=== PATIENT | female | born 1975 | race Caucasian/White ===

== ENCOUNTER 2021-02-01 11:24 | Inpatient (IN) | payer MEDICAID ==
[~2021-02-01] VITALS: Ht 170.2 cm; Wt 136.1 kg
[2021-02-01] MEDS ORDERED: MORPHINE SULFATE 4 MG/ML CPJ (NOT FOR IM USE) IV STA (12:14)
[2021-02-01] MEDS ORDERED: ONDANSETRON HCL 4MG/2ML INJ IV STA (12:14)
[2021-02-01] MEDS ORDERED: SODIUM CHLORIDE 0.9% 1,000 ML IV ONE (12:15)
[2021-02-01] MEDS: ETOMIDATE 2MG/ML 10ML VIAL IV ONE ×2 (13:47→15:45)
[2021-02-01 13:55] LABS: BASOPHILS % 1.2 % (0.0-2.0); EOSINOPHILS % 2.2 % (0.0-5.0); HEMATOCRIT. 36.9 % (36.0-48.0); HEMOGLOBIN. 11.9 g/dL (12.0-16.0); LYMPHOCYTES % 21.8 % (20.0-50.0); MEAN CORPUSCULAR HEMOGLOBIN 23.1 pg (28.0-32.0); MEAN CORPUSCULAR VOLUME 71.6 fL (81.0-99.0); MEAN PLATELET VOLUME 9.2 fl (7.4-10.4); MONOCYTES % 7.4 % (2.0-8.0); NEUTROPHILS % 67.4 % (40.0-76.0); PLATELET 153 x1000/uL (130-400); RED BLOOD CELL COUNT 5.16 mill/uL (4.2-5.4); RED CELL DISTRIBUTION WIDTH 18.7 % (11.6-14.6)
[2021-02-01 14:02] LABS: CHLORIDE 111 mEq/L (98-107)
[2021-02-01 14:06] LABS: HCG SCREEN NEGATIVE
[2021-02-01 14:08] LABS: INR 1.1; PARTIAL THROMBOPLASTIN TIME 23.7 sec (23.4-31.0); PROTHROMBIN TIME 11.6 sec (9.6-11.0)
[2021-02-01] MEDS ORDERED: MORPHINE SULFATE 4 MG/ML CPJ (NOT FOR IM USE) IV ONE ×3 (14:15→20:00)
[2021-02-01] MEDS ORDERED: IOHEXOL-350 100 ML BOTTLE ONE (15:28)
[2021-02-01] MEDS ORDERED: DOCUSATE SODIUM 100MG CAPSULE PO PRN (20:15)
[2021-02-01] MEDS ORDERED: DIPHENHYDRAMINE 50MG/ML VIAL IV PRN (20:15)
[2021-02-01] MEDS ORDERED: LORAZEPAM 2MG/ML CPJ IV PRN (20:15)
[2021-02-01] MEDS ORDERED: ONDANSETRON HCL 4MG/2ML INJ IV PRN (20:15)
[2021-02-01] MEDS ORDERED: IPRATROPIUM/ALBUTEROL 0.5-3(2.5)MG/3ML NEB HHN PRN (20:15)
[2021-02-01] MEDS ORDERED: CLONIDINE 0.1MG TABLET PO PRN (20:15)
[2021-02-01] MEDS ORDERED: MAGNESIUM/ALUMINUM HYDROXIDE/SIMETHICONE 30ML UDC PO PRN (20:15)
[2021-02-01] MEDS ORDERED: HYDRALAZINE 20MG/ML VIAL IV PRN (20:15)
[2021-02-01] MEDS ORDERED: ENOXAPARIN 40MG/0.4ML SYR SUBCUT SCH (20:15)
[2021-02-01] MEDS ORDERED: GUAIFENESIN 200MG/10ML SUGAR FREE UDC PO PRN (20:15)
[2021-02-01 21:00] VITALS: BP 138/66
[2021-02-02] VITALS: BP 144/80
[2021-02-02] MEDS: ENOXAPARIN 30MG/0.3ML SYR SUBCUT SCH ×2 (00:05→09:00)
[2021-02-02] MEDS: MORPHINE SULFATE 2 MG/ML CPJ (NOT FOR IM USE) IV PRN ×6 (00:05→21:20)
[2021-02-02] MEDS: SODIUM CHLORIDE 0.9% INJ 3ML FLUSH IVF SCH ×3 (00:06→21:20)
[2021-02-02 04:00] VITALS: BP 110/75
[2021-02-02 06:27] LABS: CHLORIDE 108 mEq/L (98-107)
[2021-02-02 07:07] LABS: BASOPHILS % 1.2 % (0.0-2.0); EOSINOPHILS % 3.3 % (0.0-5.0); HEMATOCRIT. 31.9 % (36.0-48.0); HEMOGLOBIN. 10.2 g/dL (12.0-16.0); LYMPHOCYTES % 15.5 % (20.0-50.0); MEAN CORPUSCULAR HEMOGLOBIN 22.8 pg (28.0-32.0); MEAN PLATELET VOLUME 9.6 fl (7.4-10.4); MONOCYTES % 10.2 % (2.0-8.0); NEUTROPHILS % 69.8 % (40.0-76.0); PLATELET 123 x1000/uL (130-400); RED BLOOD CELL COUNT 4.49 mill/uL (4.2-5.4); RED CELL DISTRIBUTION WIDTH 18.9 % (11.6-14.6)
[2021-02-02 08:00] VITALS: BP 134/88
[2021-02-02 10:58] LABS: LDL CHOLESTEROL 68 mg/dL (5-100)
[2021-02-02 10:59] LABS: HDL CHOLESTEROL 47 mg/dL (40-59)
[2021-02-02 11:00] LABS: T4 FREE 1.25 ng/dL (0.76-1.46)
[2021-02-02 12:00] VITALS: BP 117/64
[2021-02-02 16:00] VITALS: BP 130/72
[2021-02-02 16:44] LABS: CREATINE KINASE 106 IU/L (26-192)
[2021-02-02 16:45] LABS: CREATINE KINASE MB FRACTION < 1.0 ng/mL (0.5-3.6)
[2021-02-02 20:00] VITALS: BP 137/70
[2021-02-02] MEDS: ENOXAPARIN 40MG/0.4ML SYR SUBCUT SCH (21:00)
[2021-02-02 22:55] LABS: CLARITY URINE CLOUDY (CLEAR); COLOR URINE DARK YELLOW (YELLOW); KETONES URINE TRACE (NEGATIVE); LEUKOCYTE ESTERASE URINE TRACE (NEGATIVE); NITRITE URINE NEGATIVE (NEGATIVE); OCCULT BLOOD URINE 3+ (NEGATIVE); PH URINE 8.5 (4.5-8.0); PROTEIN URINE 1+ (NEGATIVE)
[2021-02-02 23:09] LABS: *AMPHETAMINES SCREEN URINE NEGATIVE (NEGATIVE); *BARBITURATES SCREEN URINE NEGATIVE (NEGATIVE); *BENZODIAZEPINES SCREEN URINE NEGATIVE (NEGATIVE); *COCAINE SCREEN URINE NEGATIVE (NEGATIVE)
[2021-02-02 23:10] LABS: CANNABINOID URINE SCREEN NEGATIVE (NEGATIVE); METHADONE URINE SCREEN NEGATIVE (NEGATIVE); PHENCYCLIDINE URINE SCREEN NEGATIVE (NEGATIVE)
[2021-02-02 23:16] LABS: OPIATES URINE SCREEN PRESUMTIVE POSITIVE (NEGATIVE)
[2021-02-03] VITALS: BP 130/74
[2021-02-03] MEDS: MORPHINE SULFATE 2 MG/ML CPJ (NOT FOR IM USE) IV PRN ×6 (01:29→22:34)
[2021-02-03 01:45] LABS: CREATINE KINASE 96 IU/L (26-192)
[2021-02-03 01:47] LABS: CREATINE KINASE MB FRACTION < 1.0 ng/mL (0.5-3.6)
[2021-02-03 04:00] VITALS: BP 129/67
[2021-02-03] MEDS: SODIUM CHLORIDE 0.9% INJ 3ML FLUSH IVF SCH ×3 (06:55→22:34)
[2021-02-03 07:46] LABS: CREATINE KINASE 92 IU/L (26-192)
[2021-02-03 07:47] LABS: CREATINE KINASE MB FRACTION < 1.0 ng/mL (0.5-3.6)
[2021-02-03 08:00] VITALS: BP 124/70
[2021-02-03] MEDS: ENOXAPARIN 40MG/0.4ML SYR SUBCUT SCH ×2 (09:48→21:00)
[2021-02-03 12:00] VITALS: BP 115/77
[2021-02-03 16:00] VITALS: BP 125/77
[2021-02-03 20:00] VITALS: BP 128/77
[2021-02-04] VITALS: BP 129/73
[2021-02-04] MEDS: MORPHINE SULFATE 2 MG/ML CPJ (NOT FOR IM USE) IV PRN ×5 (02:37→20:29)
[2021-02-04 04:00] VITALS: BP 125/75
[2021-02-04] MEDS: SODIUM CHLORIDE 0.9% INJ 3ML FLUSH IVF SCH ×3 (05:52→22:00)
[2021-02-04 08:00] VITALS: BP 141/82
[2021-02-04] MEDS: ENOXAPARIN 40MG/0.4ML SYR SUBCUT SCH ×2 (09:00→20:29)
[2021-02-04 12:00] VITALS: BP 141/64
[2021-02-04 16:00] VITALS: BP 151/87
[2021-02-04 20:00] VITALS: BP 134/73
[2021-02-04] MEDS: HYDROCODONE/ACETAMINOPHEN 10/325MG TABLET PO PRN (22:31)
[2021-02-05] VITALS (7 sets, daily range): BP systolic 107–148; BP diastolic 63–79
[2021-02-05] MEDS: MORPHINE SULFATE 2 MG/ML CPJ (NOT FOR IM USE) IV PRN ×4 (00:53→16:41)
[2021-02-05] MEDS: HYDROCODONE/ACETAMINOPHEN 10/325MG TABLET PO PRN ×2 (03:59→12:30)
[2021-02-05] MEDS: SODIUM CHLORIDE 0.9% INJ 3ML FLUSH IVF SCH ×2 (06:31→14:00)
[2021-02-05] MEDS ORDERED: ALBU4TAB6 MT (10:23)
[2021-02-05] MEDS ORDERED: FURO-152 PO (10:23)
[2021-02-05] MEDS ORDERED: HYDR-4350 PO (10:23)
[2021-02-05] MEDS: ENOXAPARIN 40MG/0.4ML SYR SUBCUT SCH (11:34)
[2021-02-05] MEDS ORDERED: LIDOCAINE 5% PATCH TOP SCH (14:00)
== END 2021-02-05 17:05 | DRG 342 ==
LOC: ER 11:39 → 6EST 18:01 → ENRESERV 19:58
PROVIDERS: ADMIT Internal Medicine; ATTEND Internal Medicine
DX: S83.012A Lateral subluxation of left patella, initial encounter (principal); I11.0 Hypertensive heart disease with heart failure; E46 Unspecified protein-calorie malnutrition; I50.9 Heart failure, unspecified; E66.01 Morbid (severe) obesity due to excess calories; M17.0 Bilateral primary osteoarthritis of knee; J45.909 Unspecified asthma, uncomplicated; R74.01 Elevation of levels of liver transaminase levels; F17.200 Nicotine dependence, unspecified, uncomplicated; Z68.42 Body mass index [BMI] 45.0-49.9, adult; Z88.5 Allergy status to narcotic agent; Z88.8 Allergy status to other drugs, medicaments and biological substances; Z79.899 Other long term (current) drug therapy; Z20.822 Contact with and (suspected) exposure to COVID-19; Z86.73 Personal history of transient ischemic attack (TIA), and cerebral infarction without residual deficits; X50.1XXA Overexertion from prolonged static or awkward postures, initial encounter; Y93.89 Activity, other specified; Y92.89 Other specified places as the place of occurrence of the external cause; Y99.8 Other external cause status; W19.XXXA Unspecified fall, initial encounter
CPT/HCPCS: 36415; 71045; 72191; 73560; 73706; 80053; 80061; 80305; 81003; 82550; 82553; 83036; 83880; 84439; 84443; 84484; 84703; 85025; 85379; 86850; 86900; 87426; 93005; 93306; 93970; 97162; 99285; J1650; J2270; J2405; J3490; J7030; L1830; Q9967